=== PATIENT | female | born 1990 | race Caucasian/White ===

== ENCOUNTER 2020-06-17 16:22 | Emergency (ER) | payer OTHER, SELFPAY ==
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
[2020-06-17 18:01] VITALS: BP 89/47; PULSE 80; RESP 16; TEMP 37; O2SAT 98; BMI 21.4
[2020-06-17 20:35] VITALS: BP 97/67; PULSE 67; RESP 16; TEMP 36.8; O2SAT 98
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
== END 2020-06-17 21:29 | disposition home or self-care (01) ==
PROVIDERS: Emergency Provider Emergency Medicine
DX: Z04.1 Encounter for examination and observation following transport accident (principal); M54.5 Low back pain
CPT/HCPCS: 72100; 99283; 99284

== ENCOUNTER 2021-03-09 18:44 | Emergency (ER) | payer OTHER, SELFPAY ==
[2021-03-09 18:59] VITALS: BP 113/71; PULSE 68; RESP 16; TEMP 37.2; O2SAT 97; BMI 21.2
--- NOTE | 2021-03-09 22:53 | ED.HA ---
HPI - Headache General Chief Complaint: Headache Stated Complaint: headache Time Seen by Provider: 03/09/21 22:28 Source: patient Mode of arrival: ambulatory Limitations: no limitations History of Present Illness MD elicited complaint: headache and migraine Onset (ago): day(s) (2) Onset description: gradually Location: frontal and temporal Severity: moderate Quality & Timing: throbbing and progressively worsening Exacerbating factors: light and noise Relieving factors: rest and NSAIDs Context: occurred at rest Associated symptoms: nausea, photophobia and other (has a scratchy throat wants a COVID test) Treatments prior to arrival: none Related Data Previous Rx's Medication Instructions Recorded cyclobenzaprine 10 mg tablet 10 mg PO TID PRN #18 tab 06/17/20 [id number] 1 tab PO Q6H PRN #20 tab 03/09/21 50 mg-325 mg-40 mg tablet cyclobenzaprine 10 mg tablet 10 mg PO TID PRN #14 tab 03/09/21 ondansetron 4 mg disintegrating 4 mg PO Q8H PRN #20 tab 03/09/21 tablet Allergies Allergy/AdvReac Type Severity Reaction Status Date / Time No Known Allergies Allergy Verified 06/17/20 18:01 Review of Systems Review of Systems: Constitutional : No Fever, No Chills, No Fatigue ENT/Mouth : pos sore throat, No Rhinorrhea Eyes: No Eye Pain, No Swelling, No Redness Cardiovascular : No Chest Pain, No SOB, No Dyspnea on Exertion Respiratory : No Cough, No Sputum Gastrointestinal : No Nausea, No Vomiting, No Diarrhea, No abdominal Pain Genitourinary : No Dysuria, No Urinary Frequency, No Hematuria, Musculoskeletal : No joint pain, No Myalgias, No Joint Swelling Skin : No Skin Lesions, No rash Neuro : No Weakness, No Numbness, No Dizziness, positive Headache Psych : No Anxiety/Panic, No Depression Heme/Lymph: No Bruising, No Bleeding,No Lymphadenopathy Endocrine : No Polyuria, No Polydipsia All other systems reviewed and are negative [facility] Past Medical History Attestation statement: The following information was validated with the patient. Medical History Patient denies medical problems Social History Social History (Updated 03/09/21 @ 22:56 by Yuki Dangelo, DO) Alcohol intake: never Patient Tobacco Use Status: Never used Tobacco Advance Directives: No Advance Directives Information Provided: No Patient : No Physical Exam Vital Signs: Vital Signs: Last Vital Signs Temp 99.0 F 03/09/21 18:59 Pulse 58 03/09/21 23:04 Resp 16 03/09/21 23:04 BP 116/59 L 03/09/21 23:04 Pulse Ox 99 03/09/21 23:04 Body Mass Index 21.2 Appearance: Alert. Oriented X3. No acute distress. Eyes: Pupils equal, round and reactive to light. ENT: Pharynx normal. Neck: Normal inspection. Neck supple. no meningeal signs CVS: Normal heart rate and rhythm. Pulses normal. Respiratory: No respiratory distress. Breath sounds normal. Abdomen: Soft and non-tender. Skin: Skin warm and dry. Normal skin color. Normal skin turgor. Extremities: No lower extremity edema. No calf ttp Neuro: Oriented X 3. No motor deficit. No sensory deficit. 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 Dispo per results and findings. Lab Data Labs: Lab Results 03/09/21 Range/Units 23:11 COVID-19 (MEET) Negative (Negative) COVID-19 Clin Com See Note Discharge Plan Discharge Clinical Impression: Tension headache Patient Disposition: Home, Self-Care Instructions: Tension Headache (ED) Additional Instructions: return to ED for any worsening symptoms or concerns COVID negative Prescriptions: New cyclobenzaprine 10 mg tablet 10 mg PO TID PRN (Reason: muscle spasm) Qty: 14 RF: 0 rotccyayhy-zipaoebhaileq-fqxp 50-325-40 mg tablet 1 tab PO Q6H PRN (Reason: pain) Qty: 20 RF: 0 ondansetron 4 mg tablet,disintegrating 4 mg PO Q8H PRN (Reason: nausea and vomiting) Qty: 20 RF: 0 No Action cyclobenzaprine 10 mg tablet 10 mg PO TID PRN (Reason: pain) Qty: 18 RF: 0 Stand Alone Forms: Work/School Release
[2021-03-09 23:04] VITALS: BP 116/59; PULSE 58; RESP 16; O2SAT 99
[2021-03-09] MEDS: Butalb/Acetamin/Caff 50/325/40 TABLET 1 TAB PO (23:08)
[2021-03-09] MEDS: Cyclobenzaprine HCl 10 MG TABLET PO (23:08)
[2021-03-09] MEDS: Ondansetron ODT 4 MG TAB.RAPDIS TRANSLINGU (23:08)
[2021-03-09 23:36] LABS: COVID-19 Test Negative (Negative); IDNOW Serial# 9DD0AD1C
== END 2021-03-10 00:25 | disposition home or self-care (01) ==
PROVIDERS: Emergency Provider Emergency Medicine
DX: G44.209 Tension-type headache, unspecified, not intractable (principal); Z20.822 Contact with and (suspected) exposure to COVID-19
CPT/HCPCS: 36415; 87635; 99283; 99284